=== PATIENT | female | born 1965 | race Hispanic/Latino ===

== ENCOUNTER 2017-05-27 15:27 | Outpatient (CLI) | payer BC | END 2017-05-27 15:28 | disposition home or self-care (01) | LOC: BICMAMMO 15:27 | PROVIDERS: ATTEND Internal Medicine | DX: M81.0 Age-related osteoporosis without current pathological fracture (principal) | CPT/HCPCS: 77080 ==

== ENCOUNTER 2018-04-28 14:05 | Outpatient (CLI) | payer BC | END 2018-04-28 14:06 | disposition home or self-care (01) | LOC: BICMAMMO 14:05 | PROVIDERS: ATTEND Family Medicine | DX: Z12.31 Encounter for screening mammogram for malignant neoplasm of breast (principal); Z80.3 Family history of malignant neoplasm of breast | CPT/HCPCS: 77063; 77067 ==

== ENCOUNTER 2019-02-12 10:57 | Observation (INO) | payer BC ==
[2019-02-12 11:35] LABS: #Basophils 0.1 thou/uL (0.0-0.2); #Eosinphils 0.1 thou/uL (0.0-0.7); #Lymphocytes 2.8 thou/uL (1.20-3.40); #Neutrophils 5.7 thou/uL (1.40-6.50); %Basophils 0.8 % (0.0-1.0); %Eosinophils 0.9 % (0.0-10.0); %Lymphocytes 28.9 % (21.0-51.0); %Neutrophils 59.4 % (42.0-75.0); Hemoglobin 12.5 g/dL (12.0-16.0); Mean Corpuscular HGB CONC 33.8 g/dL (32.0-36.0); Mean Corpuscular Hemoglobin 29.3 pg (27.0-31.0); Mean Corpuscular Volume 86.6 fL (78.0-98.0); Mean Platelet Volume 6.4 fL (7.4-10.4); Platelet Count 466 thou/uL (130-400); RBC Distribution Width 12.2 % (11.5-14.5); Red Blood Cell (RBC) Count 4.26 mill/uL (4.20-5.40); White Blood Cell (WBC) Count 9.5 thou/uL (4.8-10.8)
[2019-02-12 11:47] LABS: ALT (SGPT) 23 U/L (8-55); AST (SGOT) 20 U/L (5-34); Albumin 4.7 g/dL (3.5-5.0); Alkaline Phosphatase 99 U/L (40-110); Anion Gap 14 mmol/L (10-20); BUN (Urea Nitrogen) 11 mg/dL (9.8-20.1); Bilirubin, Total 0.5 mg/dL (0.2-1.2); CK (CPK) 90 U/L (29-168); Calc. Creatinine Clearance 0 mL/min (70-130); Calcium 10.1 mg/dL (7.8-10.44); Carbon Dioxide 28 mmol/L (22-29); Chloride 103 mmol/L (98-107); Estimated GFR-MDRD 81; Globulin 2.9 g/dL (2.4-3.5); Glucose 87 mg/dL (70-105); Potassium 4.1 mmol/L (3.5-5.1); Protein, Total 7.6 g/dL (6.0-8.3); Sodium 141 mmol/L (136-145)
--- NOTE | 2019-02-12 11:49 | RAD ---
RADIOGRAPH CHEST 2 VIEWS: DATE: 02/12/2019 HISTORY: 53-year-old female with chest pain FINDINGS: There is no airspace density, pulmonary edema, pleural effusion, pneumothorax, or cardiomegaly. IMPRESSION: No acute cardiopulmonary findings.
[2019-02-12] MEDS ORDERED: Aspirin Chewable 81 MG TAB ONE (12:09)
[2019-02-12] MEDS ORDERED: Nitroglycerin 0.4 MG TAB 1 EACH ONE (12:09)
[2019-02-12] MEDS ORDERED: Acetaminophen 500 MG TAB ONE (12:40)
--- NOTE | 2019-02-12 14:21 | PDOC.FPRHP ---
- History of Present Illness Chief Complaint: Chest Pain History of Present Illness: Mrs. Luna is a 53 y/o female who presents with a 24H history of chest pain. She describes the pain as a "burning" sensation located in the substernal region, similar to other episodes of reflux that she has had in the past. She states that the pain initially radiate to both sides of her jaw and straight through to her back, but now is localized only to the substernal region. The pain has been constant and rated as a 5-6 and is not relieved with position, belching , palpation or multiple antacids. She states that she has had a dry cough for 4-5 days, usually while at work. She also states that she has been experiencing mild anorexia since yesterday as well as subjective difficulty with deep inspiration. Mrs. Luna also states that she thinks she may have had an episode of sweating, but is unsure since she experiences mild sweating at baseline due to being perimenopausal. Due to her RA and Fibromyalgia , she also states that she has chronic muscle aaches and cramps. She denies MAYBERRY, changes in vision, N/V/D, pre-syncope, syncope, epistaxis, ABD pain, polyuria, vaginal bleeding/discharge, dysuria, bloody stool, mucous in her stool, recent illness, recent travel or sick contacts. Additionally, she states that she is currently taking an oral anti-fungal medication for a lesion on her LLQ. ED Course: Mrs. Luna had an unremarkable ED course and received only ASA 325 mg and Nitro. Her CXR was unremarkable and her EKG revealed an incomplete RBBB and an age- indeterminate inferior infarct. - Allergies/Adverse Reactions Allergies Allergy/AdvReac Type Severity Reaction Status Date / Time clindamycin Allergy Intermediate Rash Verified 02/16/16 13:06 tizanidine Allergy Intermediate ITCHING Verified 02/16/16 13:06 - Home Medications Medication Instructions Recorded Confirmed Type Esomeprazole Magnesium 40 mg PO DAILY 02/16/16 02/12/19 History Folic Acid 1 tab PO BID 02/16/16 02/12/19 History Hydroxychloroquine Sulfate 200 mg PO DAILY 02/16/16 02/12/19 History [Plaquenil] Lisinopril 20 mg PO BID 02/16/16 02/12/19 History Tramadol HCl 1 tab PO TID PRN 02/16/16 02/12/19 History predniSONE [Prednisone] 2.5 mg PO DAILY 02/16/16 02/12/19 History Acetaminophen [Tylenol] 1,000 mg PO Q6HR PRN 02/12/19 02/12/19 History B-Complex with Vitamin C [Super B 1 each PO DAILY 02/12/19 02/12/19 History Complex-Vitamin C] Biotin 10,000 mcg PO QPM 02/12/19 02/12/19 History Certolizumab Pegol [Cimzia] 200 mg SC Q14D 02/12/19 02/12/19 History Cyanocobalamin (Vitamin B-12) 5,000 mcg PO DAILY 02/12/19 02/12/19 History [Vitamin B-12] Diazepam 0.5 tab PO QPM PRN 02/12/19 02/12/19 History Fluticasone Propionate [Flonase 2 sprays INH QPM 02/12/19 02/12/19 History Nasal [place]] Glucosam/Chond/Hyalu/Cf Borate 1 each PO BID 02/12/19 02/12/19 History [Move Free Joint Health Tablet] Ibuprofen [Motrin] 400 mg PO BID PRN 02/12/19 02/12/19 History Lifitegrast [Xiidra] 1 drop EA EYE BID 02/12/19 02/12/19 History Methotrexate/PF [Otrexup] 20 mg SC Q7D 02/12/19 02/12/19 History Phentermine HCl 37.5 mg PO DAILY 02/12/19 02/12/19 History Pregabalin 1 tab PO QPM 02/12/19 02/12/19 History Sertraline HCl 50 mg PO DAILY 02/12/19 02/12/19 History Terbinafine [LamISIL] 1 tab PO DAILY 02/12/19 02/12/19 History Venlafaxine HCl 75 mg PO QPM 02/12/19 02/12/19 History - History PMHx: RA, FIbromyalgia, Sjorgen's Syndrome, HTN PSHx: Cholecystectomy, Tonsillectomy, Oral Implant (Left) FHx: Did Not Assess Social: Denies x3. Full Code - is MPOA. - Review of Systems General: reports: fever/chills, night sweats, fatigue Eyes: denies: vision changes ENT: reports: other (Denies epistaxis). denies: rhinorrhea Respiratory: reports: cough (Dry, 4-5 days in duration), shortness of breath Cardiovascular: reports: chest pain, edema (Chronic). denies: palpitation, orthopnea Gastrointestinal: denies: nausea, vomiting, diarrhea, constipation, abdominal pain, GI bleeding Genitourinary: denies: dysuria, polyuria, discharge Skin: reports: rashes (LLQ) Musculoskeletal: reports: pain, tenderness, stiffness, swelling, arthritis/ arthralgias Neurological: denies: syncope, weakness Psychological: reports: anxiety, depression - Vital signs BP: [144/87] HR: [87] RR: [17] Tmax: [] Pox: [98]% on [Room] Wt: [] - Physical Exam Constitutional: NAD, awake, alert and oriented, well developed HEENT: normocephalic and atraumatic, PERRLA, no scleral icterus, grossly normal vision, grossly normal hearing, normal nasal mucosa, MMM, oropharynx clear, good dention Neck: supple, FROM, trachea midline, no LAD, no JVD Chest: no-tender to palpation, no lesions Heart: RRR, normal S1/S2, no murmurs/rubs/gallops, pulses present, no edema Lungs: CTAB, no respiratory distress, good air movement, no rales/rhonchi, no wheezing, no retractions Abdomen: soft, non-tender, no masses/distention, other (2-3 cm ulceration on LLQ ) Musculoskeletal: normal structure, ROM grossly normal Neurological: no focal deficit Skin: no jaundice Heme/Lymphatic: no unusual bruising or bleeding, no purpura, no petechia, no LAD Psychiatric: normal mood and affect, good judgment and insight, intact recent and remote memory FMR H&P: Results - Labs Result Diagrams: 02/12/19 11:02/12/19 11: Lab results: WBC 9.5 thou/uL (4.8-10.8) 02/12/19 11: Hgb 12.5 g/dL (12.0-16.0) 02/12/19 11: Hct 36.9 % (36.0-47.0) 02/12/19 11:17 MCV 86.6 fL (78.0-98.0) 02/12/19 11:17 Plt Count 466 thou/uL (130-400) H 02/12/19 11:17 Neutrophils % 59.4 % (42.0-75.0) 02/12/19 11:17 Sodium 141 mmol/L (136-145) 02/12/19 11:17 Potassium 4.1 mmol/L (3.5-5.1) 02/12/19 11:17 Chloride 103 mmol/L (98-107) 02/12/19 11:17 Carbon Dioxide 28 mmol/L (22-29) 02/12/19 11:17 BUN 11 mg/dL (9.8-20.1) 02/12/19 11:17 Creatinine 0.75 mg/dL (0.6-1.1) 02/12/19 11:17 Glucose 87 mg/dL (70-105) 02/12/19 11:17 Calcium 10.1 mg/dL (7.8-10.44) 02/12/19 11:17 Total Bilirubin 0.5 mg/dL (0.2-1.2) 02/12/19 11:17 AST 20 U/L (5-34) 02/12/19 11:17 ALT 23 U/L (8-55) 02/12/19 11:17 Alkaline Phosphatase 99 U/L (40-110) 02/12/19 11:17 Creatine Kinase 90 U/L (29-168) 02/12/19 11:17 Serum Total Protein 7.6 g/dL (6.0-8.3) 02/12/19 11:17 Albumin 4.7 g/dL (3.5-5.0) 02/12/19 11:17 - EKG Interpretation EKG: Incomplete RBBB and age-indeterminate Inferior Infarct - Radiology Interpretation Chest x-ray Status: image reviewed by me, report reviewed by me ([email or web address]) FMR H&P: A/P - Plan #Atypical Chest pain -Patient's HPI is suspicious for GI etiology, but RA and Fibromyalgia may mask clinically significant signs and symptoms -Vital signs WNL except for mild HTN -EKG: Incomplete RBBB w/ age-indeterminate inferior infarct -CXR: NAF -Trops: Negative x2 -Lipase: Pending -Administer GI Cocktail -Nitro Paste Q8H for pain -Consider additional Nitro SL and EKG to assess for evolving changes in pain / EKG -Plan for NM Cardiac Stress Test this afternoon or tomorrow AM #Rheumatoid Arthritis -Continue home medication regimen #Fibromyalgia -Continue home medication regimen #HTN -BP: 144/87 on 02/12 -Continue home medication regimen -Hydralazine 10 mg PO Q4H PRN if BP > 180/110 Code Status: Full Code Diet: NPO (Medicine w/ Sips of Water) Activity: Ad brenda DVT PPx: SCDs and Lovenox 40 mg SC Dispo: Patient appears stable and was admitted to the Telemetry Floor for further observation. Plan for Stress Test this afternoon or tomorrow AM depending on scheduling - consider Cardiology consult if necessary. Expected LOS < 48H. FMR H&P: Upper Level - Pertinent history 53 yo F w/ PMH of htn, GERD and RA presents for 24 hour history of substernal cp described as burning. Denies any associated syncope, sob, NVDC, diaphoresis. Pain initially presented yesterday and radiated to her back, jaw and rt arm. Denies alcohol, tobacco and drug use. No fam Hx. Had asa and nitro in ED with brief improvement of symptoms and they shortly returned. No relief with tums and pepcid. Trops negative and EKG did not show any st or t wave changes. - Pertinent findings ROS: As above PE: Gen: NAD, resting comfortably in bed HEENT: NCAT, PERRLA, EOMI CV: RRR No MRG Resp: CTABL no wrr Abd: Soft NTND bsx4 no epigastric pain Neuro: No focal deficit Psych: appears anxious Extremities: No clubbing cyanosis, trace edema, pulses 2+ throughout - Plan Date/Time: 02/12/19 1356 IRodrigo DO, have evaluated this patient and agree with findings/ plan as outlined by internet retailer resident. Pertinent changes/additions are listed here. 1) Atypical cp - admit to tele obs for stress test evaluation - negative trops x2 and reassuring ekg, unlikely acs - GI cocktail X1 as pt describes similar pain with worsening reflux 2) RA: home meds 3) HTN: Home meds Dispo: Stable, admit to tele obs for acs r/o and dc home. If stress negative and trops negative x3 pt can likely be dc'd this evening. Addendum - Attending - Attending Attestation Date/Time: 02/12/19 1900 I personally evaluated the patient and discussed the management with Dr. Mai /Sancho I agree with the History, Examination, Assessment and Plan documented above with any addition or exceptions noted below. 53 yo HF PMH RA, fibromyalgia, Sjorgen's Syndrome, HTN, and GERD. Presents with 1 day hx of substernal/epigastric burning that did not resolve with OTC antacids. FHx CAD in her father who had CABG x3vz in his 60s. CXR
[2019-02-12] MEDS ORDERED: Acetaminophen 325 MG TAB PO PRN (14:30)
[2019-02-12] MEDS ORDERED: Senokot S 8.6-50 MG TAB PO PRN (14:30)
[2019-02-12] MEDS ORDERED: Calcium Carbonate 500 MG ChewTAB PO PRN (14:30)
[2019-02-12] MEDS ORDERED: Ondansetron ODT 4 MG TAB PO PRN (14:30)
[2019-02-12] MEDS ORDERED: Lidocaine 2% Viscous Solution 20 ML, Aluminum & Magnesium Hydroxide 30 ML, Donnatal Eli... SSW SCH (14:45)
[2019-02-12 15:04] LABS: Troponin I Less than 0.010 ng/mL (< 0.028)
[2019-02-12] MEDS ORDERED: hydrALAZINE 10 MG TAB PO PRN (15:31)
[2019-02-12] MEDS ORDERED: Nitroglycerin 0.4 MG TAB (25 Tab Bottle) ONE (17:46)
[2019-02-12 17:53] VITALS: BMI 35.3
[2019-02-12 17:59] LABS: Troponin I Less than 0.010 ng/mL (< 0.028)
[2019-02-12] MEDS: Famotidine 20 MG TAB PO SCH (22:14)
[2019-02-12] MEDS: Nitroglycerin 2% Ointment 1 INCH/1 GM Packet TOP SCH (22:15)
[2019-02-12] MEDS ORDERED: Diazepam 5 MG TAB PO PRN (22:16)
[2019-02-12] MEDS ORDERED: Acetaminophen 500 MG TAB PO PRN (22:16)
[2019-02-12] MEDS ORDERED: traMADol HCl 50 MG TAB PO PRN (22:16)
[2019-02-12] MEDS ORDERED: CERTOLIZUMAB PEGOL 200 MG SC SCH (22:30)
[2019-02-12] MEDS ORDERED: Lisinopril 20 MG TAB PO SCH (23:00)
[2019-02-12] MEDS ORDERED: Pregabalin 75 MG CAP PO SCH (23:00)
[2019-02-12] MEDS: Folic Acid 1 MG TAB PO SCH ×2 (23:18→23:30)
[2019-02-13] MEDS: Nitroglycerin 2% Ointment 1 INCH/1 GM Packet TOP SCH (04:08)
--- NOTE | 2019-02-13 05:13 | PDOC.FM ---
- Subjective Subjective: Mrs. Luna was standing comfortably in her hospital room while her adjusted her gown after using the restroom at the time of evaluation. She denied any acute overnight events, specifically with regard to her chest pain - which she stated had resolved completely. She also denied any visual disturbances or N/V. - Objective Vital Signs & Weight: Vital Signs (12 hours) Temp Pulse Resp BP BP Pulse Ox 02/13/19 04:01 97.9 F 82 18 150/73 H 99 02/13/19 02:38 95 02/12/19 23:16 137/74 02/12/19 19:31 97.5 F L 83 12 137/68 95 02/12/19 17:53 98.3 F 78 16 167/77 H 98 Weight Weight 87.997 kg I&O: 02/11/19 02/12/19 02/13/19 06:59 06:59 06:59 Intake Total 800 Balance 800 Result Diagrams: 02/12/19 11:17 02/12/19 11:17 Phys Exam - Physical Examination Constitutional: NAD HEENT: PERRLA, moist MMs, sclera anicteric, oral pharynx no lesions Neck: no JVD, supple, full ROM Respiratory: no wheezing, no rales, no rhonchi, clear to auscultation bilateral Cardiovascular: RRR, no significant murmur, no rub Gastrointestinal: soft, non-tender, no distention Musculoskeletal: no edema, pulses present +2 pulses at Radial and Dorsalis Pedis Arteries Neurological: non-focal, moves all 4 limbs Psychiatric: normal affect Skin: no rash Dx/Plan - Plan Plan: #Atypical Chest pain -Patient's HPI is suspicious for GI etiology, but RA and Fibromyalgia may mask clinically significant signs and symptoms -Vital signs WNL except for mild HTN (SBP in 140s) -EKG: Incomplete RBBB w/ age-indeterminate inferior infarct, no previous EKG for comparison -CXR: NAF -Trops: Negative x3 -Fasting Lipid Panel: Tri(87) Chol(173) LDL(103) HDL(53) - ASCVD 10 Year Risk: < 5% -Lipase: 6 -s/p GI Cocktail -Nitro Paste Q8H for pain -Resting portion of NM Stress Test performed on 02/12 - plan for active portion this AM #Rheumatoid Arthritis -Continue home medication regimen #Fibromyalgia -Continue home medication regimen #HTN -BP: 150/73 on 02/13 -Continue home medication regimen -Hydralazine 10 mg PO Q4H PRN if BP > 180/110 -Consider antihypertensive medication optimization prior to DC Code Status: Full Code Diet: NPO (Medicine w/ Sips of Water) Activity: Ad brenda DVT PPx: SCDs and Lovenox 40 mg SC Dispo: Patient appears stable on Telemetry Floor for further observation. Plan to complete Stress Test this AM depending on scheduling - consider Cardiology consult if necessary. Expected LOS < 24H. Addendum - Attending - Attending Attestation Date/Time: 02/13/19 1040 I personally evaluated the patient and discussed the management with Dr. Mai. I agree with the History, Examination, Assessment and Plan documented above with any addition or exceptions noted below. The patient's cardiac enzymes are negative. She is chest pain free. Waiting on stress test results. Will d/c if negative.
[2019-02-13 05:31] LABS: Cardiac Risk 3.3 (Less than 4.5)
[2019-02-13] MEDS ORDERED: predniSONE 5 MG TAB PO SCH (08:00)
[2019-02-13] MEDS ORDERED: Cyanocobalamin (Vitamin B-12) 1,000 MCG TAB PO SCH (09:00)
[2019-02-13] MEDS ORDERED: Lisinopril 20 MG TAB PO SCH (09:00)
[2019-02-13] MEDS ORDERED: Terbinafine 250 MG TAB PO SCH (09:00)
[2019-02-13] MEDS ORDERED: Lifitegrast [Xiidra] 1 DROP EA EYE SCH (09:00)
[2019-02-13] MEDS ORDERED: Folic Acid 1 MG TAB PO SCH ×2 (09:00)
[2019-02-13] MEDS ORDERED: Enoxaparin Sodium 40 MG/0.4 ML SYRINGE SC SCH (09:00)
[2019-02-13] MEDS ORDERED: Stress 600 With Zinc 1 TAB PO SCH (09:00)
[2019-02-13] MEDS ORDERED: Hydroxychloroquine Sulfate 200 MG TAB PO SCH (09:00)
[2019-02-13] MEDS ORDERED: [UNRECOGNIZED DRUG - REMARK] PO SCH (09:00)
[2019-02-13] MEDS: Famotidine 20 MG TAB PO SCH (10:07)
--- NOTE | 2019-02-13 10:17 | NM ---
EXAM: Nuclear medicine cardiac perfusion examination with ejection fraction HISTORY: Chest pain TECHNIQUE: Rest images: 29 mCi technetium 99m sestamibi Stress images: 29.8 mCi of technetium 9M sestamibi; Adenosine COMPARISON: None FINDINGS: Tomographic images: No fixed or reversible perfusion defects. Gated images: Normal wall motion and ejection fraction of greater than 70%. EDV: 81 mL LHR: 0.6 TID: 1.3 IMPRESSION: No evidence of ischemia
[2019-02-13 12:34] VITALS: BP 140/77; TEMP 98.5
[2019-02-13] MEDS ORDERED: ADENOSINE 60 MG/20 ML VIAL ONE (13:39)
[2019-02-13] MEDS ORDERED: Fluticasone Propionate Nasal Spray 16 gm Bottle NASAL SCH (21:00)
[2019-02-13] MEDS ORDERED: Pregabalin 75 MG CAP PO SCH (21:00)
[2019-02-13] MEDS ORDERED: Non-Formulary Item 1 EACH (Biotin [Biotin] 10,000 MCG) PO SCH (21:00)
--- NOTE | 2019-02-14 06:12 | DIS ---
DATE OF ADMISSION: 02/12/2019 DATE OF DISCHARGE: 02/13/2019 RESIDENT: Demarcus Mai MD DISCHARGE ATTENDING: Corry Mackenzie MD CONSULTS: None. PROCEDURES: Chest x-ray, which revealed no acute cardiopulmonary findings, nuclear medicine cardiac perfusion examination with ejection fraction measuring normal wall motion and an ejection fraction that is greater than 70%. No evidence of fixed or reversible perfusion defects/ischemia. PRIMARY DIAGNOSIS: Chest pain secondary to gastroesophageal reflux disease. SECONDARY DIAGNOSES: 1. Rheumatoid arthritis. 2. Fibromyalgia. 3. Hypertension. DISCHARGE MEDICATIONS: 1. Famotidine 20 mg p.o. b.i.d. 2. Lisinopril 20 mg p.o. b.i.d. DISCONTINUED MEDICATIONS: 1. Calcium carbonate 1000 mg p.o. q.4 hours. 2. Vitamin B12 5000 mcg daily. 3. Famotidine 20 mg p.o. b.i.d. 4. Folic acid 1 mg p.o. daily. 5. Hydrochloroquine sulfate 200 mg p.o. daily. 6. Lisinopril 20 mg p.o. b.i.d. 7. Multivitamin with zinc supplementation one tab p.o. daily. 8. Protonix 40 mg p.o. daily. 9. Prednisone 2.5 mg p.o. daily. 10. Sertraline 50 mg p.o. daily. 11. Terbinafine 250 mg p.o. daily. 12. Tramadol 50 mg p.o. t.i.d. 13. Sublingual nitroglycerin and GI cocktail administered once each. HISTORY OF PRESENT ILLNESS/HOSPITAL COURSE: Ms. Luna is a 53-year-old female, who presents with a 24-hour history of chest pain. She describes the pain as burning sensation located in the substernal region. She stated it was similar to other episodes of reflux that she has had in the past. She stated that the pain initially radiated to both jaws and straight through to her back, but on presentation in the ED was localized only to the substernal region and did not radiate. The pain had been constant and rated as a 5 or 6 and was not relieved with position, belching, palpation or multiple antacids. She stated that she had a dry cough for 4 to 5 days, usually while at work. She also said that she had been experiencing mild anorexia since the day prior when the chest pain started as well as subjective difficulty with deep inspiration. Ms. Luna also stated that she thinks she may have had an episode of sweating, but is unsure should she experience mild sweating at baseline due to being perimenopausal. Due to her rheumatoid arthritis and fibromyalgia, she also stated that she had chronic muscle aches and cramps. She denied headache, changes in vision, nausea, vomiting, diarrhea, presyncopal episode, syncopal episodes, epistaxis, abdominal pain, polyuria, vaginal bleeding or discharge, dysuria, bloody stools, mucus in her stools, recent illness, recent travel, or sick contacts. She also stated that she is taking an antifungal for a lesion on her left lower quadrant. She had an unremarkable ED course and received only an aspirin 325 mg and nitroglycerin. Her chest x-ray was unremarkable and her EKG revealed an incomplete right bundle branch block. She remained stable during her time in the hospital, and was transferred to the telemetry floor. She had a stress test performed with results documented elsewhere in this report. She recovered well following the administration of a GI cocktail and multiple rounds of Protonix, famotidine and Tums, and had no more episodes of chest pain during hospitalization. As such, she was cleared for discharge when no cardiopulmonary causes of her chest pain could be identified. Prior to discharge, her vital signs were reported as temperature 98.5, pulse 88 beats per minute, blood pressure 140/77, respirations 14 per minute, O2 sats 96% on room air LABORATORY ANALYSIS: Revealed a white blood cell count of 9.5, hemoglobin 12.5, hematocrit 36.9, platelet count 466. Chem panel revealed a sodium of 141, potassium 4.1, chloride 103, carbon dioxide 28, BUN 11, creatinine 0.75, glucose 87, calcium 10.1, total bilirubin 0.5, AST 20, ALT 23, alkaline phosphatase 99. Creatine kinase 90. Troponins were less than 0.01 x3. Lipase 6. Fasting lipid panel was performed with triglycerides 87, cholesterol 173, LDL 103, HDL 53. DISPOSITION: Stable. DISCHARGE INSTRUCTIONS: 1. Location: Home. 2. Diet: Heart healthy. 3. Activity: Ad brenda. 4. Followup: The patient was encouraged to follow up with her primary care provider within 7 days in order to discuss her most recent hospitalization as well as medical management of her GERD, which is the most likely etiology of her recent episode of chest pain. Job ID: [id number]
== END 2019-02-13 13:20 | disposition home or self-care (01) ==
LOC: ERS 10:57 → 2SW 13:40
PROVIDERS: ADMIT Family Medicine; ATTEND Family Medicine
DX: K21.9 Gastro-esophageal reflux disease without esophagitis (principal); R07.89 Other chest pain; M06.9 Rheumatoid arthritis, unspecified; M79.7 Fibromyalgia; I10 Essential (primary) hypertension; M35.00 Sjogren syndrome, unspecified; I45.10 Unspecified right bundle-branch block; F32.9 Major depressive disorder, single episode, unspecified; Z79.52 Long term (current) use of systemic steroids; Z79.899 Other long term (current) drug therapy; Z88.1 Allergy status to other antibiotic agents; Z88.8 Allergy status to other drugs, medicaments and biological substances
CPT/HCPCS: 36415; 71046; 78452; 80053; 80061; 82550; 83690; 84484; 85025; 93005; 93017; 94760; A9500; G0378; J0153; J7512

== ENCOUNTER 2019-05-25 14:47 | Outpatient (CLI) | payer BC ==
--- NOTE | 2019-05-25 15:26 | MMO ---
Bilateral MAMMO Bilat Screen [facility]. CLINICAL HISTORY: Patient is 53 years old and is seen for screening. The patient has the following family history of breast cancer: mother, malignant (generic). The patient has no personal history of cancer. VIEWS: The views performed were: bilateral craniocaudal with tomosynthesis and bilateral mediolateral oblique with tomosynthesis. FILMS COMPARED: The present examination has been compared to prior imaging studies performed at [facility] on 01/12/2013, 06/06/2015, 08/05/2016 and 04/28/2018. This study has been interpreted with the assistance of computer-aided detection. MAMMOGRAM FINDINGS: There are scattered fibroglandular densities. There are stable benign appearing calcifications seen in both breasts. There are no suspicious masses, suspicious calcifications, or new areas of architectural distortion. IMPRESSION: THERE IS NO MAMMOGRAPHIC EVIDENCE OF MALIGNANCY. A ROUTINE FOLLOW-UP MAMMOGRAM IN 1 YEAR IS RECOMMENDED. THE RESULTS OF THIS EXAM WERE SENT TO THE PATIENT. ACR BI-RADS Category 2 - Benign finding MAMMOGRAPHY NOTE: 1. A negative mammogram report should not delay a biopsy if a dominant of clinically suspicious mass is present. 2. Approximately 10% to 15% of breast cancers are not detected by mammography. 3. Adenosis and dense breasts may obscure an underlying neoplasm. Reported by: KAVEH BENNETT MD Electonically Signed: [id number]
== END 2019-05-25 14:48 | disposition home or self-care (01) ==
LOC: BICMAMMO 14:47
PROVIDERS: ATTEND Family Medicine
DX: Z12.31 Encounter for screening mammogram for malignant neoplasm of breast (principal); Z80.3 Family history of malignant neoplasm of breast
CPT/HCPCS: 77063; 77067

== ENCOUNTER 2020-02-08 17:30 | Outpatient (CLI) | payer BC | END 2020-02-08 17:31 | disposition home or self-care (01) | LOC: SLEEPLAB 17:30 | PROVIDERS: ATTEND Otolaryngology Plastic Surgery within the Head & Neck | DX: G47.33 Obstructive sleep apnea (adult) (pediatric) (principal); R53.83 Other fatigue; E66.9 Obesity, unspecified; R06.83 Snoring; G47.00 Insomnia, unspecified; I10 Essential (primary) hypertension; F32.9 Major depressive disorder, single episode, unspecified; G47.10 Hypersomnia, unspecified; F41.9 Anxiety disorder, unspecified; Z68.36 Body mass index [BMI] 36.0-36.9, adult | CPT/HCPCS: 95806 ==

== ENCOUNTER 2020-06-27 14:02 | Outpatient (CLI) | payer BC | END 2020-06-27 14:03 | disposition home or self-care (01) | LOC: BICMAMMO 14:02 | PROVIDERS: ATTEND Family Medicine | DX: Z12.31 Encounter for screening mammogram for malignant neoplasm of breast (principal); Z80.3 Family history of malignant neoplasm of breast | CPT/HCPCS: 77063; 77067 ==

== ENCOUNTER 2020-07-03 09:29 | Outpatient (CLI) | payer BC | END 2020-07-03 09:30 | disposition home or self-care (01) | LOC: BICRAD 09:29 | PROVIDERS: ATTEND Family Medicine | DX: M25.552 Pain in left hip (principal); M19.90 Unspecified osteoarthritis, unspecified site ==

== ENCOUNTER 2020-07-07 07:42 | Outpatient (CLI) | payer BC | END 2020-07-07 07:43 | disposition home or self-care (01) | LOC: BICULT 07:42 | PROVIDERS: ATTEND Family Medicine | DX: R10.84 Generalized abdominal pain (principal); D25.9 Leiomyoma of uterus, unspecified; K76.0 Fatty (change of) liver, not elsewhere classified; Z90.49 Acquired absence of other specified parts of digestive tract | CPT/HCPCS: 76856; 93975 ==

== ENCOUNTER 2021-12-15 09:50 | Outpatient (CLI) | payer BC | END 2021-12-15 09:51 | disposition home or self-care (01) | LOC: BICMAMMO 09:50 | PROVIDERS: ATTEND Family Medicine | DX: Z12.31 Encounter for screening mammogram for malignant neoplasm of breast (principal) | CPT/HCPCS: 77063; 77067 ==

== ENCOUNTER 2022-11-01 14:17 | Outpatient (CLI) | payer BC | END 2022-11-01 14:18 | disposition home or self-care (01) | LOC: RAD 14:17 | PROVIDERS: ATTEND Family Medicine | DX: R05.9 Cough, unspecified (principal); R60.9 Edema, unspecified | CPT/HCPCS: 71046 ==

== ENCOUNTER 2023-02-17 09:49 | Outpatient (CLI) | payer BC | END 2023-02-17 09:50 | disposition home or self-care (01) | LOC: BICMAMMO 09:49 | PROVIDERS: ATTEND Family Medicine | DX: Z12.31 Encounter for screening mammogram for malignant neoplasm of breast (principal) | CPT/HCPCS: 77063; 77067 ==